=== PATIENT | female | born 1930 | race Caucasian/White ===

== ENCOUNTER → 2016-08-16 | Outpatient (CLI) | payer OTHER ==
[~2016-08-16] MED LIST: ACET-1256 PO; CIPR-255 PO; GLIM4TAB2 PO; HYDR-5688 PO; HYDR25TA4 PO; LSN20 PO; LSX40 PO; MCRK20 PO; METF500T5 PO; METO50TA16 PO; METR-163 PO; METR0.7527 TOP; MINO50CA3 PO; MINO75CA2 PO; PRT40 PO; WARF-283 PO; WARF2TAB PO; WARF2TAB8 PO; WARF5TAB7 PO; [UNRECOGNIZED DRUG - CODE] PO
--- NOTE | 2016-08-16 16:00 | DIAGNOSTIC IMAGING REPORT ---
TWO VIEW CHEST CLINICAL HISTORY: Flulike symptoms. FINDINGS: PA and lateral chest radiographs are compared to study dated 07/16/2016. The heart is enlarged and there is atherosclerotic calcification of the thoracic aorta. The pulmonary vasculature is noncongested. Chronic residual thickening is unchanged. There is minimal atelectasis at the right lung base. No airspace consolidation or pleural effusion is seen. There is no pneumothorax. The skeletal structures are osteopenic. Degenerative change is noted throughout the thoracic spine. IMPRESSION: Cardiac enlargement with no acute cardiopulmonary abnormality. Electronically signed by: Angel Mcintyre M.D. 08/16/2016 3:58 PM
--- NOTE | 2016-08-18 09:44 | CODING QUERY NO DIAGNOSIS ---
TREATMENT RENDERED WITHOUT A DIAGNOSIS Dr. Mitchell, To promote full compliance with coding requirements relating to patient care, physician participation is requested in all cases of administrative assistant front desk uncertainty. Please assist us with providing a diagnosis/symptom for the test(s) below: A diagnosis/symptom was not documented on your Order. A valid diagnosis/symptom is required to bill all insurances. Please remember that we are unable to code a diagnosis of rule out, probable, possible, questionable, or suspected. Tests that require a diagnosis: * CHEST X-RAY 2 VIEWS PA & LATERAL DIAGNOSIS: DATE OF SERVICE: 08/16/16 Provider Signature: Date: Thank you Carroll Vickers [facility] Information Management Once completed, please kindly fax back to [phone] For questions please call [phone]
== END | disposition home or self-care (01) ==
LOC: C.RAD 15:12
PROVIDERS: ATTEND Physical Medicine & Rehabilitation
DX: J18.9 Pneumonia, unspecified organism (principal); I51.7 Cardiomegaly

== ENCOUNTER → 2016-08-27 | Outpatient (CLI) | payer OTHER, BC ==
[2016-08-27 13:22] LABS: BASO % 0.3 %; BASO ABS # 0.03 K/uL (0-0.2); COMPLETE YES; EOS % 1.4 %; HEMATOCRIT 33.9 % (37-47); IG% 0.2 %; LYMPH % 14.8 %; LYMPH ABS # 1.31 K/uL (1.2-3.4); MEAN CELL VOLUME 91.9 fL (80-100); MEAN CORPUSCULAR HEMOGLOBIN 30.4 pg (25-34); MEAN PLATELET VOLUME 10.7 fL (7.4-10.4); NEUT % 72.3 %; PLATELET COUNT 256 K/uL (130-400); RED BLOOD COUNT 3.69 M/uL (4.2-5.4); WHITE BLOOD COUNT 8.84 K/uL (4.8-10.8)
[2016-08-27 14:35] LABS: BLOOD UREA NITROGEN 29 mg/dl (7-18); BUN/CREATININE RATIO 19.3 (10-20); CALCIUM 9.4 mg/dl (8.5-10.1); CARBON DIOXIDE 21 mmol/L (21-32); CHLORIDE 109 mmol/L (98-107); GLUCOSE 233 mg/dl (70-99); POTASSIUM 4.7 mmol/L (3.5-5.1); SODIUM 140 mmol/L (136-145)
== END | disposition home or self-care (01) ==
LOC: C.LAB1850 11:59
PROVIDERS: ATTEND Family Medicine
DX: N28.9 Disorder of kidney and ureter, unspecified (principal); Z93.3 Colostomy status; Z51.81 Encounter for therapeutic drug level monitoring; Z79.01 Long term (current) use of anticoagulants; I48.91 Unspecified atrial fibrillation

== ENCOUNTER → 2016-09-03 | Outpatient (CLI) | payer OTHER, BC ==
[~2016-09-03] MED LIST changes: -ACET-1256 PO; -CIPR-255 PO; -HYDR-5688 PO; -LSX40 PO; -MCRK20 PO; -METR-163 PO; -PRT40 PO; -WARF2TAB PO
[2016-09-03 12:43] LABS: BLOOD UREA NITROGEN 35 mg/dl (7-18); BUN/CREATININE RATIO 27.2 (10-20); CALCIUM 9.6 mg/dl (8.5-10.1); CARBON DIOXIDE 25 mmol/L (21-32); CHLORIDE 105 mmol/L (98-107); GLUCOSE 278 mg/dl (70-99); POTASSIUM 4.8 mmol/L (3.5-5.1); SODIUM 138 mmol/L (136-145)
[2016-09-03 12:48] LABS: FERRITIN 82.1 ng/ml (8.0-388.0); TOTAL IRON BINDING CAPACITY 295 mcg/dl (250-450)
--- NOTE | 2016-09-10 11:29 | CODING QUERY MEDICAL NECESSITY ---
SUPPORTING DIAGNOSIS NEEDED Dr. Streeter, A supporting diagnosis is required for the test/procedure performed on this patient in order for us to be reimbursed by the patient's insurance. Please provide a supporting diagnosis for the following test/procedure listed below next to the test name along with your signature. *If there is no additional diagnosis for this patient that would support the following test/procedure please document that below next to the test/procedure. Test(s)/Procedure(s) that require a supporting diagnosis: * ([id number]) B12 VITAMIN LEVEL DIAGNOSIS: * ([id number]) FOLATE LEVEL DIAGNOSIS: DATE OF SERVICE: 09/03/16 Provider Signature: Date: Thank you Carroll Vickers [facility] Information Management Once completed, please kindly fax back to [phone] For questions please call [phone]
== END | disposition home or self-care (01) ==
LOC: C.LAB1850 11:20
PROVIDERS: ATTEND Family Medicine
DX: D64.9 Anemia, unspecified (principal); N28.9 Disorder of kidney and ureter, unspecified

== ENCOUNTER → 2016-11-11 | Outpatient (CLI) | payer OTHER, BC ==
[~2016-11-11] MED LIST changes: +DVN80 PO; +LISI-725 PO; -MINO75CA2 PO; -WARF5TAB7 PO
[2016-11-11 09:38] LABS: BASO ABS # 0.07 K/uL (0-0.2); COMPLETE YES; EOS % 6.8 %; HEMATOCRIT 35.5 % (37-47); IG% 0.1 %; LYMPH % 26.9 %; LYMPH ABS # 1.98 K/uL (1.2-3.4); MEAN CELL VOLUME 95.7 fL (80-100); MEAN CORPUSCULAR HEMOGLOBIN 31.5 pg (25-34); MEAN PLATELET VOLUME 11.1 fL (7.4-10.4); MONO % 7.6 %; NEUT % 57.6 %; PLATELET COUNT 210 K/uL (130-400); RED BLOOD COUNT 3.71 M/uL (4.2-5.4); WHITE BLOOD COUNT 7.36 K/uL (4.8-10.8)
[2016-11-11 09:55] LABS: ESTIMATED AVERAGE GLUCOSE 180 mg/dl; HA1C FLAG Normal (Normal)
[2016-11-11 09:59] LABS: ALT/SGPT 23 U/L (12-78); BLOOD UREA NITROGEN 17 mg/dl (7-18); CALCIUM 9.7 mg/dl (8.5-10.1); CARBON DIOXIDE 31 mmol/L (21-32); CHLORIDE 104 mmol/L (98-107); CHOLESTEROL 167 mg/dl (0-200); CREATININE 0.75 mg/dl (0.60-1.20); GLUCOSE 105 mg/dl (70-99); MAGNESIUM 1.9 mg/dl (1.8-2.4); POTASSIUM 3.8 mmol/L (3.5-5.1); SODIUM 142 mmol/L (136-145)
[2016-11-11 10:08] LABS: ALB/GLOB RATIO 0.8 (0.9-2); ALKALINE PHOSPHATASE 95 U/L (45-117); AST/SGOT 26 U/L (15-37); CHOLESTEROL/HDL RATIO 2.8; HDL CHOLESTEROL 59 mg/dl; LDL CHOLESTEROL CALCULATED 91 mg/dl; TRIGLYCERIDES 85 mg/dl (0-150); VERY LOW DENSITY LIPOPROT CALC 17 mg/dl
--- NOTE | 2016-11-19 08:02 | CODING QUERY MEDICAL NECESSITY ---
SUPPORTING DIAGNOSIS NEEDED A supporting diagnosis is required for the test/procedure performed on this patient in order for us to be reimbursed by the patient's insurance. Please provide a supporting diagnosis for the following test/procedure listed below next to the test name along with your signature. *If there is no additional diagnosis for this patient that would support the following test/procedure please document that below next to the test/procedure. Test(s)/Procedure(s) that require a supporting diagnosis: * VITAMIN D 25-HYDROXY DIAGNOSIS: * DOS: 11/11/16 Provider Signature: Date: Thank you Grace [facility] Information Management Once completed, please kindly fax back to [phone] For questions please call [phone]
== END | disposition home or self-care (01) ==
LOC: C.LAB1850 08:06
PROVIDERS: ATTEND Family Medicine
DX: E11.9 Type 2 diabetes mellitus without complications (principal); N28.9 Disorder of kidney and ureter, unspecified; D64.9 Anemia, unspecified; E55.9 Vitamin D deficiency, unspecified

== ENCOUNTER 2017-02-19 13:23 | Emergency (ER) | payer OTHER, BC ==
[~2017-02-19] VITALS: Ht 156.2 cm; Wt 62.2 kg
[~2017-02-19 13:23] MED LIST changes: -DVN80 PO; -LISI-725 PO
[2017-02-19 13:30] VITALS: BP 194/93; PULSE 73; TEMP 36.6; O2SAT 96; Ht 156.2 cm; Wt 62.2 kg
--- NOTE | 2017-02-19 14:22 | EMERGENCY ROOM VISIT NOTE ---
ED Visit Note First contact with patient: 13:52 CHIEF COMPLAINT: Wants a consult with wound nurse HISTORY OF PRESENT ILLNESS: This 86-year-old female presents the ER with a travel director with chief complaint that they would like to consult with a wound nurse. Over the past week they have noticed some increased redness/rash around the patient's stoma under her colostomy bag. The patient states it is not itchy or sore but is concerned because it is red. She has had the colostomy since July. Surgery was performed by Dr. Rankin. The patient states that she was told by both her surgeon and her family doctor in the past that if she has any concerns that she could come to the hospital and asked for a consult with a wound nurse. The patient states that she cleans the skin around the area with Dial soap and then applies a skin protector and then the bag. She sometimes also uses powder. She only started having problems over the last several weeks but got worse over the last week. REVIEW OF SYSTEMS: 6 system review was performed and was negative unless stated otherwise in history of present illness. PMH: The patient is healthy; diabetes, heart disease, hypertension, diverticulitis, colostomy, hysterectomy, appendectomy, stroke SOCIAL HISTORY: Patient lives alone PHYSICAL EXAM: Vital Signs: Were reviewed See nurses' notes. GENERAL: 86-year- old white female appears in no acute distress. MENTAL Status: Alert and oriented 3. SKIN: There is a patchy red rash which is only approximately 8 mm in width around the opening of the stoma. There are no vesicles or open areas. There is no purulent drainage. DIAGNOSIS: Contact dermatitis around stoma DISCHARGE INSTRUCTIONS & TREATMENT: Discontinue the dial soap. Recommend using Hibiclens soap around the stoma. You can use skin prep and powder if needed. Call Dr. Schaefer to see how frequently you should be changing the bag. If you have any signs of infection such as deep redness, open wounds or purulent drainage call your family doctor for a referral to the wound clinic. Problem List Medical Problems: (1) Atrial fibrillation Status: Chronic (2) Diabetes Status: Chronic (3) Hypertension Status: Chronic (4) Stroke Status: Resolved Surgical Problems: (1) History of appendectomy Status: Resolved (2) History of hysterectomy Status: Resolved Current/Historical Medications Scheduled Glimepiride (Glimepiride), 4 MG PO DAILY Hydrochlorothiazide (Hctz), 25 MG PO DAILY Lisinopril (Lisinopril), 20 MG PO BID Metformin Hcl Er (Glucophage Er), 500-1,000 MG PO BID Metoprolol Tartrate (Lopressor) (Lopressor), 25 MG PO BID Metronidazole (Topical) (Metrogel), 1 APPLN TOP BID Minocycline Hcl (Minocycline Hcl), 50 MG PO 2XWK Nutritional Supplements ([place] Breakfast Essen), 1 UNIT PO DAILY Warfarin Sod (Jantoven), 2 MG PO 2XWK Warfarin Sodium (Warfarin Sodium), 4 MG PO 5XWK Allergies Coded Allergies: Adhesives (Verified Allergy, Intermediate, IRRITATES SKIN "العراقي ON SKIN FOR WEEKS", 07/16/16) Penicillins (Verified Allergy, Unknown, UNKNOWN, 07/16/16) Pertussis Vaccine (Verified Allergy, Unknown, UNKNOWN, 07/16/16) Vital Signs Date Time Temp Pulse Resp B/P (MAP) Pulse Ox O2 Delivery O2 Flow Rate FiO2 02/19/17 13:30 36.6 73 18 194/93 96 Room Air Departure Information Referrals Araceli Streeter DO (PCP) Patient Instructions [facility]
== END 2017-02-19 14:41 | disposition home or self-care (01) ==
LOC: C.EDB 13:25 → C.EDD 14:41
DX: L24.89 Irritant contact dermatitis due to other agents (principal); Z93.3 Colostomy status; E11.9 Type 2 diabetes mellitus without complications; I10 Essential (primary) hypertension; Z90.710 Acquired absence of both cervix and uterus; Z86.73 Personal history of transient ischemic attack (TIA), and cerebral infarction without residual deficits; I48.2 Chronic atrial fibrillation; Z79.01 Long term (current) use of anticoagulants; Z79.899 Other long term (current) drug therapy

== ENCOUNTER → 2017-05-24 | Outpatient (CLI) | payer OTHER, BC ==
[2017-05-24 12:40] LABS: ESTIMATED AVERAGE GLUCOSE 169 mg/dl; HA1C FLAG Normal (Normal)
[2017-05-24 12:41] LABS: ALT/SGPT 19 U/L (12-78); BLOOD UREA NITROGEN 16 mg/dl (7-18); BUN/CREATININE RATIO 18.9 (10-20); CALCIUM 9.3 mg/dl (8.5-10.1); CARBON DIOXIDE 30 mmol/L (21-32); CHLORIDE 106 mmol/L (98-107); CREATININE 0.83 mg/dl (0.60-1.20); GLUCOSE 84 mg/dl (70-99); POTASSIUM 3.5 mmol/L (3.5-5.1); SODIUM 142 mmol/L (136-145)
[2017-05-24 12:44] LABS: CHOLESTEROL 151 mg/dl (0-200); CHOLESTEROL/HDL RATIO 2.4; HDL CHOLESTEROL 64 mg/dl; LDL CHOLESTEROL CALCULATED 69 mg/dl; TRIGLYCERIDES 89 mg/dl (0-150); VERY LOW DENSITY LIPOPROT CALC 18 mg/dl
== END | disposition home or self-care (01) ==
LOC: C.LAB1850 10:53
PROVIDERS: ATTEND Family Medicine
DX: E11.9 Type 2 diabetes mellitus without complications (principal)

== ENCOUNTER → 2017-11-19 | Outpatient (CLI) | payer OTHER, BC ==
[~2017-11-19] MED LIST changes: +LISI-725 PO; -LSN20 PO; -[UNRECOGNIZED DRUG - CODE] PO
[2017-11-19 11:31] LABS: HEMOGLOBIN A1C 8.3 % (4.5-5.6)
== END | disposition home or self-care (01) ==
LOC: C.LABBC 08:14
PROVIDERS: ATTEND Neuromusculoskeletal Medicine & OMM
DX: E11.9 Type 2 diabetes mellitus without complications (principal)

== ENCOUNTER → 2018-03-15 | Outpatient (CLI) | payer OTHER, BC ==
[~2018-03-15] MED LIST changes: +BIOT1TAB5 PO; +GLIM2TAB2 PO; -METF500T5 PO; +OPTIRAY 320 IV PRN
--- NOTE | 2018-03-15 14:26 | DIAGNOSTIC IMAGING REPORT ---
CT ABD/PELVIS IV AND ORAL CONT CLINICAL HISTORY: Z93.3 Status post [id number] Anal [id number] diverticulitis COMPARISON STUDY: July 2016 TECHNIQUE: Following the IV administration of 94 mL of Optiray-320, CT scan of the abdomen and pelvis was performed from the lung bases to the proximal femurs. Images are reviewed in the axial, sagittal, and coronal planes. IV contrast was administered without complication. A dose lowering technique was utilized adhering to the principles of ALARA. Rectal contrast was utilized. CT DOSE: 957.18 mGycm FINDINGS: Lower chest: There is subpleural reticulation. There is no honeycombing. There are no pleural effusions. There are coronary artery calcifications. Liver: The contrast-enhanced liver is normal in size, contour, and attenuation. There is no intrahepatic biliary ductal dilatation. The hepatic veins and portal veins are patent. Gallbladder: There is cholelithiasis. There is a possible 17 mm polypoid mass within the gallbladder. Ultrasound follow-up is recommended. Spleen: Normal in size and attenuation. Pancreas: Unremarkable. Adrenal glands: Unremarkable. Kidneys: There is a 12 mm left renal cyst. 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 There is colonic diverticulosis. There is a loss of the normal fat plane between the colon, vaginal cuff, and bladder. No intravesical contrast is visualized. No vaginal contrast is visualized. Peritoneum: There is no intraperitoneal free air or abdominal ascites. Vasculature: The abdominal aorta is normal in course and caliber. Adenopathy: None. Pelvic viscera: The uterus is surgically absent. Skeletal structures: No destructive osseous lesions are seen. IMPRESSION: 1. Postsurgical changes with a double barrel left lower quadrant colostomy 2. Colonic diverticulosis and mild sigmoid wall thickening. There is mild infiltration of the pericolonic fat with loss of the normal fat plane between the uterus, bladder dome, and vaginal cuff. The findings are likely inflammatory. No intravesical contrast was visualized. No vaginal contrast was visualized. 3. No evidence of bowel obstruction. No evidence of free air. 4. Cholelithiasis. 17 mm polypoid gallbladder mass versus noncalcified gallstones versus adenomyomatosis. Ultrasound correlation is recommended in follow-up. Electronically signed by: Gucci Solis M.D. 03/15/2018 2:25 PM Dictated Date/Time: 03/15/2018 2:13 PM
== END | disposition home or self-care (01) ==
LOC: C.CTS 12:50
PROVIDERS: ATTEND Surgery
DX: K80.20 Calculus of gallbladder without cholecystitis without obstruction (principal); K57.30 Diverticulosis of large intestine without perforation or abscess without bleeding; R19.8 Other specified symptoms and signs involving the digestive system and abdomen; Z93.3 Colostomy status

== ENCOUNTER → 2018-03-17 | Outpatient (CLI) | payer OTHER, BC ==
[~2018-03-17] MED LIST changes: -OPTIRAY 320 IV PRN
--- NOTE | 2018-03-17 12:37 | DIAGNOSTIC IMAGING REPORT ---
L HIP UNILATERAL 2 VIEWS CLINICAL HISTORY: LEFT HIP PAIN pain COMPARISON: None. DISCUSSION: Mild degenerative narrowing left and joint space. No evidence for acetabular protrusion. No well-defined acute abnormality. Soft tissue vascular calcification. There is no evidence for soft tissue swelling. IMPRESSION: Mild degenerative change. No acute process. The above report was generated using voice recognition software. It may contain grammatical, syntax or spelling errors. Electronically signed by: Gonzalo Mi M.D. 03/17/2018 12:35 PM Dictated Date/Time: 03/17/2018 12:34 PM
== END | disposition home or self-care (01) ==
LOC: C.RADBC 11:44
PROVIDERS: ATTEND Neuromusculoskeletal Medicine & OMM
DX: M25.552 Pain in left hip (principal)